=== PATIENT | female | born 1965 | race Caucasian/White ===

== ENCOUNTER 2016-11-19 12:08 | Emergency (ER) | payer SELFPAY ==
[2015-07-14 14:08] VITALS: BMI 25.5
[~2016-11-19 12:08] MED LIST: BACLOFEN10 MG PO; CIPRO500 MG PO; DIOVAN HCT 320/1 TA2 PO; GABAPENTIN100 MG PO; MECLIZINE HCL12.5 MG PO; MELATONIN 3 MG1 TAB PO; NICODERM C1 PATCH .3 TRANSDERM; PRILOSEC20 MG PO; SYNTHROID50 MCG PO; VALTREX500 MG PO
== END 2016-11-19 18:30 | disposition home or self-care (01) ==
LOC: D.ER 12:08
DX: S00.93XA Contusion of unspecified part of head, initial encounter (principal); W00.0XXA Fall on same level due to ice and snow, initial encounter; Y93.89 Activity, other specified; Y92.019 Unspecified place in single-family (private) house as the place of occurrence of the external cause; S01.01XA Laceration without foreign body of scalp, initial encounter; S16.1XXA Strain of muscle, fascia and tendon at neck level, initial encounter; I10 Essential (primary) hypertension; I95.9 Hypotension, unspecified; E07.9 Disorder of thyroid, unspecified

== ENCOUNTER 2016-11-29 12:31 | Emergency (ER) | payer MEDICAID ==
[2015-07-14 14:08] VITALS: BMI 25.5
== END 2016-11-29 13:25 | disposition left against medical advice (07) ==
LOC: D.ER 12:31
DX: S01.01XD Laceration without foreign body of scalp, subsequent encounter (principal); X58.XXXD Exposure to other specified factors, subsequent encounter; Y92.89 Other specified places as the place of occurrence of the external cause; I10 Essential (primary) hypertension; I95.9 Hypotension, unspecified; E07.89 Other specified disorders of thyroid

== ENCOUNTER 2017-01-06 10:28 | Emergency (ER) | payer MEDICAID ==
[2015-07-14 14:08] VITALS: BMI 25.5
[2017-01-06 11:24] LABS: BASOPHILS 0.1 % (0.0-2.0); EOSINOPHILS 0.1 % (0-7); HEMATOCRIT 32.6 % (36.0-48.0); HEMOGLOBIN 10.7 g/dL (12-16); IMMATURE GRANULOCYTES 0.5 % (0-5); LYMPHOCYTES 6.9 % (15-50); MCH 32.7 pg (26.0-34.0); MCHC 32.8 g/dL (31.0-37.0); MCV 99.7 fL (80.0-100.0); MEAN PLATELET VOLUME 9.2 fL (7.4-10.4); MONOCYTES 12.7 % (2-11); NEUTROPHILS 79.7 % (40-80); RBC 3.27 10x6/uL (4.00-5.40); RDW 16.3 % (11.5-14.5); WBC 8.7 10x3/uL (4.8-10.8)
[2017-01-06 11:27] LABS: PLATELET COUNT 155 10x3/uL (130-400)
[2017-01-06 11:35] LABS: UDS - AMPHET POSITIVE QUAL (NEGATIVE); UDS - BARB NEGATIVE QUAL (NEGATIVE); UDS - BENZO NEGATIVE QUAL (NEGATIVE); UDS - COCAINE NEGATIVE QUAL (NEGATIVE); UDS - METH NEGATIVE QUAL (NEGATIVE); UDS - OPIATE NEGATIVE QUAL (NEGATIVE); UDS - PCP NEGATIVE QUAL (NEGATIVE); UDS - THC NEGATIVE QUAL (NEGATIVE)
[2017-01-06 11:38] LABS: ALBUMIN 3.4 g/dL (3.4-5.0); ANION GAP 22.4 mmol/L (8-16); BILIRUBIN - TOTAL 0.7 mg/dL (0.2-1.3); C-REACTIVE PROTEIN 6.2 mg/dL (0.0-0.9); CALCIUM 9.1 mg/dL (8.5-10.1); CREATININE - SERUM 1.3 mg/dL (0.6-1.3); POTASSIUM - SERUM 3.4 mmol/L (3.5-5.1); PROTEIN - SERUM 7.8 g/dL (6.4-8.2)
[2017-01-06 11:38] LABS: APPEARANCE CLEAR (CLEAR); BILIRUBIN NEGATIVE (NEGATIVE); COLOR YELLOW (YELLOW); GLUCOSE NEGATIVE (NEGATIVE); KETONE LARGE mg/dL (NEGATIVE); LEUKOCYTE ESTERASE NEGATIVE (NEGATIVE); NITRITE NEGATIVE (NEGATIVE); PROTEIN TRACE mg/dL (NEGATIVE); UROBILINOGEN NORMAL (NORMAL)
[2017-01-06 11:43] LABS: BACTERIA FEW /hpf (NONE SEEN); EPITHELIAL CELLS 0-5 /hpf (0-5); GRANULAR CAST OCC /lpf (NONE SEEN); HYALINE CAST 0-5 /lpf (NONE SEEN); RED CELLS - URINE 0-5 /hpf (0-5); WHITE CELLS - URINE 0-5 /hpf (0-5)
== END 2017-01-06 15:43 | disposition short-term general hospital (02) ==
LOC: D.ER 10:28
PROVIDERS: Physician Assistant
DX: M25.511 Pain in right shoulder (principal); R44.1 Visual hallucinations; M79.641 Pain in right hand; F10.10 Alcohol abuse, uncomplicated; I10 Essential (primary) hypertension; E07.9 Disorder of thyroid, unspecified; F17.200 Nicotine dependence, unspecified, uncomplicated

== ENCOUNTER 2017-08-04 00:30 | Emergency (ER) | payer MEDICAID ==
[2015-07-14 14:08] VITALS: BMI 25.5
== END 2017-08-04 07:55 | disposition home or self-care (01) ==
LOC: D.ER 00:30
DX: F10.129 Alcohol abuse with intoxication, unspecified (principal); F10.10 Alcohol abuse, uncomplicated; I10 Essential (primary) hypertension; F17.200 Nicotine dependence, unspecified, uncomplicated; Z91.81 History of falling

== ENCOUNTER 2017-09-27 02:00 | Inpatient (IN) | payer MEDICAID ==
[2017-09-27] VITALS (10 sets, daily range): BP systolic 91–147; BP diastolic 49–99; Ht 162.6 cm; Wt 73.5 kg
[~2017-09-27] VITALS: Ht 162.6 cm; Wt 73.5 kg
[2017-09-27 03:08] LABS: APPEARANCE HAZY (CLEAR); BILIRUBIN NEGATIVE (NEGATIVE); COLOR DK YELLOW (YELLOW); GLUCOSE NEGATIVE (NEGATIVE); KETONE NEGATIVE (NEGATIVE); NITRITE NEGATIVE (NEGATIVE); PROTEIN 1+ mg/dL (NEGATIVE); SPECIFIC GRAVITY 1.005 (1.005-1.020); UROBILINOGEN NORMAL (NORMAL)
[2017-09-27 03:10] LABS: BACTERIA MODERATE /hpf (NONE SEEN); EPITHELIAL CELLS 0-5 /hpf (0-5); RED CELLS - URINE 0-5 /hpf (0-5); UDS - AMPHET NEGATIVE QUAL (NEGATIVE); UDS - BARB NEGATIVE QUAL (NEGATIVE); UDS - BENZO NEGATIVE QUAL (NEGATIVE); UDS - COCAINE NEGATIVE QUAL (NEGATIVE); UDS - OPIATE NEGATIVE QUAL (NEGATIVE); UDS - PCP NEGATIVE QUAL (NEGATIVE); UDS - THC POSITIVE QUAL (NEGATIVE)
[2017-09-27 03:11] LABS: HYALINE CAST 0-5 /lpf (NONE SEEN); MUCUS <1+ /lpf (NONE SEEN)
[2017-09-27 03:35] LABS: BASOPHILS 0.2 % (0-2); EOSINOPHILS 2.7 % (0-7); HEMATOCRIT 37.8 % (36.0-48.0); HEMOGLOBIN 12.1 g/dL (12-16); IMMATURE GRANULOCYTES 0.3 % (0-5); LYMPHOCYTES 13.6 % (15-50); MCH 30.9 pg (26.0-34.0); MCV 96.7 fL (80.0-100.0); MEAN PLATELET VOLUME 10.9 fL (7.4-10.4); MONOCYTES 6.9 % (2-11); NEUTROPHILS 76.3 % (40-80); PLATELET COUNT 178 10x3/uL (130-400); RBC 3.91 10x6/uL (4.00-5.40); RDW 14.8 % (11.5-14.5); WBC 6.6 10x3/uL (4.8-10.8)
[2017-09-27 03:50] LABS: ANION GAP 5.5 mmol/L (8-16); BILIRUBIN - TOTAL 0.3 mg/dL (0.2-1.3); CALCIUM 8.7 mg/dL (8.5-10.1); CARBON DIOXIDE 27.3 mmol/L (21.0-32.0); CREATININE - SERUM 1.9 mg/dL (0.6-1.3); POTASSIUM - SERUM 3.8 mmol/L (3.5-5.1); PROTEIN - SERUM 6.3 g/dL (6.4-8.2)
--- NOTE | 2017-09-27 06:18 | NUR ---
REPORT RECEIVED FROM REX IN ER @ APPROXIMATELY 05:00. AWAITING PTS ARRIVAL.
--- NOTE | 2017-09-27 07:15 | NUR ---
RESPIRATORY THERAPIST, CAME TO NOTIFY THIS NURSE THAT PT WAS OUT OF BED, BY WINDOW WITH HER IV ALL STRETCHED OUT. WENT TO PT'S ROOM. PT STANDING WITH HANDS ON WINDOW, TALKED TO PT BUT DID NOT GET ANY RESPONSE. WENT CLOSER TO PT AND HELPED HER BACK TO BED, EXPLAINED TO PT NOT TO GET OUT OF BED WITHOUT ASSISTANCE, TO USE CALL LIGHT WHEN SHE NEEDS TO GET UP TO THE BATHROOM. PT STATED "OK". DEMETRIA CASILLAS PLACED AMERICA MAT UNDER PT AND TURNED ON. BED LOW AND WHEELS LOCKED, BEDSIDE RAILS X2, CALL LIGHT IN REACH, NAD NOTED, WILL CONTINUE PLAN OF CARE.
--- NOTE | 2017-09-27 10:46 | NUR ---
Patient Name: MICHELA HERRERA Admission Status: ER Accout number: [id number] Admission Date: 09-27-2017 : 1965 Admission Diagnosis: Attending: PEDRO FERREIRA Current LOS: 1 Anticipated DC Date: 09-28-2017 Planned Disposition: Other Type of Facility Primary Insurance: [place] PRIVATE OPTIONS [place] PLANNED EXTERNAL PROVIDER: ALCOHOL ADDICTION TREATMENT FACILITY Discharge Planning Comments: * Is the patient Alert and Oriented? Yes 0 * How many steps to enter\\exit or inside your home? NONE 0 * PCP DR. FERREIRA 0 * Pharmacy [facility] 0 * Preadmission Environment Home with Family 0 * ADLs Independent 0 * Equipment None 0 * Other Equipment NO MEDICAL EQUIPMENT PROVIDER PREFERENCE 0 * List name and contact numbers for known caregivers / representatives who currently or will assist patient after discharge: CHENTE HERRERA, SON, EASTON STRINGER, MOTHER, 0 * Community resources currently utilized None 0 * Please name any agencies selected above. NONE 0 * Additional services required to return to the preadmission environment? No 0 * Can the patient safely return to the preadmission environment? Yes 0 * Has this patient been hospitalized within the prior 30 days at any hospital? No 0 CM RECEIVED ORDERS FOR DRUG OR ALCOHOL USE SCREENING WELL PLACEMENT / ASSISTANCE. CM MET WITH PT IN ROOM TO DISCUSS DISCHARGE PLANNING AND NEEDS. PT WOULD ANSWER YES AND NO QUESTIONS AND FELL ASLEEP CONSTANTLY DURING ATTEMPT AT ASSESSMENT. CM WAS ABLE TO DETERMINE THAT PT'S SON LIVES WITH HER, THAT IS WHERE PT PLANS TO GO AT DISCHARGE AND WHEN ASKED ABOUT ALCOHOL ADDICTION TREATMENT OR PLACEMENT, PT STATES "[facility] CM CALLED PT'S MOTHER, LISTED EMERGENCY CONTACT, EASTON STRINGER, ; EASTON REPORTS THAT SHE LIVES IN [place], PT LIVES IN [place] AND PT'S SON, CHENTE, HAS MOVED IN WITH PT TO TRY TO HELP PT. PT HAS BEEN TO REHAB FOR ALCOHOL AT LEAST 7 TIMES AND WALKS AWAY EVERYTIME. EASTON WILL HAVE PT'S SON CALL CM. CM RECEIVED CALL FROM CHENTE JONESFILIPE, OR PT'S PHONE, . CHENTE REPORTS HE MOVED IN WITH PT TWO YEARS AGO TO TRY TO HELP HER. PT DOES NOT WORK, SO CHENTE IS PAYING FOR PT'S FOOD, BILLS AND PROVIDES TRANSPORATION. CHENTE REPORTS THAT PT WILL DRINK ANTHING THAT MAY CONTAIN ALCOHOL; PT HAS A VERY LONG HISTORY OF ALCOHOLISM, WILL AGREE TO GO TO TREATMENT AND THEN JUST SIGN HERSELF OUT. CHENTE REPORTS PT HAS BEEN TO TREATEMENT 8X, HAS HAD 2 DWI'S, BEEN ARRESTED FOR DISORDERLY CONDUCT AND PUBLIC INTOXICATION. PT HAS BEEN TO A [facility], BUT AGAIN WILL NOT STAY FOR HELP. LAST WEEK, CHENTE REPORTS HIS MOTHER STOLE HIS CAR TO GO GET ALCOHOL AND CAME HOME DRUNK. PT DID GO TO [facility] AND WAS DIAGNOSED BI POLAR. CHENTE ASKED ABOUT INVOLUNTARY COMMITTEMENT FOR ALCOHOL TREATMENT. FAMILY IS FEARFUL THAT PT WILL NOT STOP DRINKING AND WILL KILL HERSELF DRINKING ALCOHOL. BARBARA DIRECTED CHENTE TO THE [facility] PROSECUTOR'S OFFICE FOR VICTIM ASSISTANCE AT THE [facility]. BARBARA ALSO EXPLAINED TO CHENTE THAT FOR SOMEONE ELSE TO BE ABLE TO MAKE DECISIONS FOR PT, THAT SHE WOULD HAVE TO RULED IMCOMPETENT BY A COURT OF COMPETENT JURISICTION, DIRECTED CHENTE TO SPEAK TO AN CHECKER REGARDING THIS. CM WILL ATTEMPT TO ASSESS PT LATER TODAY WHEN PT MAY BE MORE ABLE TO PARTICIPATE. Gmat Tutor: Woo Ulrich
--- NOTE | 2017-09-27 10:56 | NUR ---
CALLED DR. MURGUIA, ASKED HIM WHAT SIZE TRIALYSIS HE NEEDS. DR. MURGUIA'S NURSE STATED THAT HE WILL NEED A 12-13CM IF THAT SIZE IS NOT AVAILABLE, THEN HE WILL USE THE SMALLEST AVAILABLE. WILL CALL MATERIAL.
--- NOTE | 2017-09-27 12:20 | NUR ---
PT HAVING INCONT EPISODES. BARRELHEAD INSPECTOR AT BEDSIDE, CLEANING PT UP. PT KEEPS GETTING OUT OF BED, STARTED KICKING BARRELHEAD INSPECTOR WHEN SHE WAS TRYING TO GET PT BACK TO BED. PT STILL VERY CONFUSED, NO FAMILY AT BEDSIDE. AMERICA MAT IN PLACE, NAD NOTED, CALL LIGHT IN REACH, WILL CONTINUE PLAN OF CARE.
--- NOTE | 2017-09-27 13:41 | NUR ---
PT'S BROTHER AT BEDSIDE. ASKED PT'S BROTHER FOR HIS NUMBER AND PT'S SON PHONE NUMBER. ERNST TAMEZMYRIAMCristiana (BROTHER) [phone], CHENTE(SON) [phone]. PT IN BED WITH EYES CLASED, AROUSES EASILY TO VOICE. NAD NOTED, CALL LIGHT IN REACH. AMERICA MAT IN PLACE
--- NOTE | 2017-09-27 16:00 | NUR ---
PT KEEPS TRYING TO GET OUT OF BED, VERY CONFUSED, AND STARTING TO GET COMBATIVE. TRYING TO KICK AND SLAP. FAMILY AND CONE CHOCOLATE DIPPER ARE NOT ABLE TO KEEP PT IN BED. PT PULLING AT HEART MONITOR AND IV. DISCONNECTED PT FROM IV FLUIDS. FAMILY WANTS PT TO GET SOMETHING FOR PAIN. INFORMED FAMILY THAT PT CAN NOT GET ANYTHING FOR PAIN AT THIS TIME, BECAUSE SHE CAME IN WITH AMS AND PT IS STILL CONFUSED. 1610- TALKED TO DR. FERREIRA ABOUT PT BEING COMBATIVE AND NOT WANTING TO STAY IN BED. DR. FERREIRA STATED THAT IF AN ICU BED WAS AVAILABLE TO TRANSFER PT TO ICU FOR CLOSER MONITORING. 1620- CALLED QUALITY ASSURANCE SUPERVISOR TRIM ANITA AND INFORMED HER ABOUT A NEED FOR ICU BED. ASHELY WILL CALL BACK IF ICU BED IS AVAILABLE. 1630- PT SCREAMING AT THE TOP OF HER LUNGS AND STILL TRYING TO GET OUT OF BED, PT HITTING SON AND BROTHER. TRIED TO GET PT TO CALM DOWN, NOTHING WORKING, PT TRYING TO HIT THIS NURSE AND CONE CHOCOLATE DIPPER. FAMILY ASKING FOR SOMETHING TO BE DONE, BROTHER STATING " WHAT WOULD YA'LL BE DOING IF WE WERE NOT HERE". EXPLAINED TO FAMILY THAT I AM WORKING ON GETTING AN ICU BED, SO PT CAN BE RESTRAINED. 2 CNAS, SON AND BROTHER TRYING TO KEEP PT IN BED, PT STILL FIGHTING TO GET OUT. STILL WAITING FOR ICU BED.
--- NOTE | 2017-09-27 16:03 | NUR ---
PT'S MEDICATIONS GIVEN TO PT'S SON TO TAKE HOME.
--- NOTE | 2017-09-27 17:07 | NUR ---
CALLED ICU TO GIVE REPORT, SPOKE WITH TIAN, WHO STATED THAT NURSE WHO WILL BE TAKING CARE OF PT WILL CALL BACK TO GET REPORT.
--- NOTE | 2017-09-27 18:09 | NUR ---
REPORT GIVEN TO NATHAN MICHELE IN ICU.
--- NOTE | 2017-09-27 18:20 | NUR ---
1715 RECEIVED PER BED FROM FLOOR. EYES WIDE OPEN STARRING OUT INTO SPACE. NOT ANSWERING QUESTIONS SKIN SWEATY, WARM. BILATERAL LUNG SOUNDS CLEAR AND EQUAL ABD SOFT WITH BOWEL SOUNDS. SALINE LOCK LEFT FOREARM. FLUSHES WITHOUT DIFFICULTY NO SWELLING OR REDNESS AT SITE. WRIST RESTRAINTED FOR SAFETY. BROTHER AND SON HERE. DISCUSS CENTRAL LINE FOR DIALYSIS TRIALYSIS CATHETER AND DIALYSIS TO DECREASE HER SERUM LITHIUM LEVELS. VERBAL UNDERSTANDING. TALKED WITH BREVING ABOUT TRIALYSIS CATHETER.CONSENT SIGNED. PATIENT BECAME UNCONTROLLABLE BUCKING UP AND DOWN SWINGING HEAD UP AND DOWN BACK AND FORTH UNCONTROLLABLY NURSES AND PHYSICIAN COULD NOT HOLD HER DOWN. ANESTHESIA CALLED TO ASSIST WITH CONTROLLING PATIENT DURING PROCEDURE. DR. JERRY LIM TRIALYSIS INSERTED IN RIGHT IJ WITH MINIMAL BLEEDING. PATIENT TOLERATED FAIR. CHEST DONE FOR PLACEMENT. DIALYSIS NURSE IN THE ROOM.
--- NOTE | 2017-09-27 18:57 | NUR ---
TALK TO RADIOLOGY LINE IN SVC, CLEARED FOR USE. DIALYSIS NURSE NOTIFIED
--- NOTE | 2017-09-27 19:00 | NUR ---
REPORT RECEIVED AND ASSESSMENT COMPLETED. PT IS CURRENTLY UNDERGOING DIALYSIS. PT IS A LITHIUM OVERDOSE. AT THIS TIME PT IS SCREAMING LOUDLY, AND KICKING IN THE AIR. UNABLE TO DETERMINE PAIN LEVEL WITH DISCUSSION, THOUGH PT FACE APPEARS MORE FEARFUL THAIN IN PAIN, AND SHE CALMS BREIFLY WHEN REORIENTED. STILL THERE IS CONCERN FOR HER TRIALYSIS CATHETER. PT HAS PAST HX OF MENTAL HEALTH DISORDERS, AND ALCOHOLISM. WILL MONITOR CLOSELY THROUGHOUT SHIFT.
--- NOTE | 2017-09-27 21:00 | NUR ---
PT CONTINUES TO THRASH IN BED UNABLE TO KEEP PATIENT CALM AND SAFE THROUGH DIALYSIS AND CONCERNED FOR HER TRIALYSIS MD TIMMY CONTACTED. NEW ORDERS RECEIVED.
--- NOTE | 2017-09-27 23:00 | NUR ---
REASSESSMENT COMPLETED. SEE FLOWSHEET FOR FULL DETAILS. PT STILL UNDERGOING DIALYSIS. WITH PRN MEDICATION, PT HAS STOPPED THRASHING IN BED; HOWEVER, SHE IS STILL SCREAMING. LITHIUM LEVEL SUBSTANTIALLY LOWER THAN BEGINNING OF SHIFT. CURRENTLY 1.33. WILL CONTINUE TO MONITOR
[2017-09-28] VITALS (24 sets, daily range): BP systolic 98–146; BP diastolic 52–85
--- NOTE | 2017-09-28 01:00 | NUR ---
DIALYSIS CONCLUDED FOR THE EVENING. NO FLUID REMOVE FROM PATIENT DURING TREATMENT.
--- NOTE | 2017-09-28 03:00 | NUR ---
REASSESSMENT COMPLETED. SEE FLOWSHEET FOR FULL DETAILS. NO OTHER CHANGES IN STATUS AT THIS TIME. VSS. WILL MONITOR
[2017-09-28 04:28] LABS: BASOPHILS 0 % (0-2); EOSINOPHILS 0.7 % (0-7); HEMATOCRIT 37.7 % (36.0-48.0); HEMOGLOBIN 12.3 g/dL (12-16); IMMATURE GRANULOCYTES 0.1 % (0-5); LYMPHOCYTES 4.8 % (15-50); MCH 30.4 pg (26.0-34.0); MCHC 32.6 g/dL (31.0-37.0); MEAN PLATELET VOLUME 10.8 fL (7.4-10.4); MONOCYTES 9.2 % (2-11); NEUTROPHILS 85.2 % (40-80); RBC 4.04 10x6/uL (4.00-5.40); RDW 14.4 % (11.5-14.5)
[2017-09-28 04:31] LABS: MCV 93.3 fL (80.0-100.0); PLATELET COUNT 140 10x3/uL (130-400); WBC 8.3 10x3/uL (4.8-10.8)
[2017-09-28 04:38] LABS: ANION GAP 11.8 mmol/L (8-16); CALCIUM 8.1 mg/dL (8.5-10.1); CARBON DIOXIDE 27.9 mmol/L (21.0-32.0)
[2017-09-28 04:50] LABS: POTASSIUM - SERUM 2.7 mmol/L (3.5-5.1)
--- NOTE | 2017-09-28 06:05 | NUR ---
LAB CALLED. POTASSIUM 2.7. CONTACTED. NEW ORDERS RECEIVED.
--- NOTE | 2017-09-28 07:00 | NUR ---
REPORT RECEIVED FROM OFF GOING NURSE. DURING REPORT, PT SCREAMING AND MOANING. WAS NOTIFIED THAT SHE DID THIS ALL NIGHT. SEE FLOW SHEET FOR ASSESSMENT. PT WILL HAVE EYES CLOSED AND SUDDENLEY OPEN EYES WIDE AND SCREAM. PT WILL NOT RESPOND WHENEVER SPOKEN TOO. PT WILL NOT FOLLOW COMMANDS. PT IN RESTRAINTS AND WILL THRASH AT RESTRAINTS. SKIN INSPECTED. NO REDDNESS NOTED. VSS. BREATHING NORMAL AND UNLABORED. WILL CONT POC.
[2017-09-28 08:19] LABS: HEPATITIS C ANTIBODY <0.1 (0.0-0.9)
--- NOTE | 2017-09-28 08:30 | NUR ---
PT THRASHING AT RESTAINTS AND SCREAMING. STILL UNABLE TO COMMUNICATE WITH PT DUE TO HER PSYCOSIS. ATTIVAN GIVEN. VSS.
--- NOTE | 2017-09-28 09:00 | NUR ---
PT INC. PERICARE PROVIDED AND BED LINENS CHANGED. MENTAL STATUS UNCHANGED. REMAINS TO SCREAM. VSS. BREATHING NORMAL AND UNLABORED.
[2017-09-28 10:32] LABS: ANION GAP 11.3 mmol/L (8-16); CALCIUM 7.9 mg/dL (8.5-10.1); CARBON DIOXIDE 27.3 mmol/L (21.0-32.0); CREATININE - SERUM 1.1 mg/dL (0.6-1.3)
[2017-09-28 10:33] LABS: POTASSIUM - SERUM 3.6 mmol/L (3.5-5.1)
--- NOTE | 2017-09-28 11:00 | NUR ---
PT RESTIN WITH EYES CLOSED WITH EVEN UNLABORD RESPIRATION. EVERY NOW AND THEN WILL SCREAM FOR ABOUT A SECOND, THEN CLOSE EYES AND REST. VSS. CALL LIGHT IN REACH. WILL CONT POC
--- NOTE | 2017-09-28 11:30 | NUR ---
BANANA BAG HUNG PER ORDERS. PT REMAINS RESTING WITH EYES CLOSED. VSS. CALL LIGHT IN REACH. WILL CONT POC
--- NOTE | 2017-09-28 12:00 | NUR ---
PT BLADDER AND BOWEL INC. BED SATURATED WITH URINE AND SMALL AMOUNT OF STOOL. PERIAREA CLEANSED AND NEW LINES TO BED. PT UNABLE TO FOLLOW DIRECTIONS SUCH TURNING SIDE TO SIDE. CALL LIGHT IN REACH. WILL CONT POC
--- NOTE | 2017-09-28 13:00 | NUR ---
PT RESTING WITH EYES CLOSED WITH EVEN UNLABORED RESPIRATION. BREIF DRY. CALL LIGHT IN REACH. VSS. WILL CONT POC.
--- NOTE | 2017-09-28 15:00 | NUR ---
PT REMAINS IN BED. SCREAMING AND YELLING. NOT THRASHING AT RESTAINTS. WHENEVER SCREAMING, SHE WILL OPEN HER EYES WIDE AND HAVE A FIXED POINT STARE. UNABLE TO ASSESS IF SHE IS SEEING ANYTHING OF NOT DUE HER NOT COMMUNICATING.
--- NOTE | 2017-09-28 16:00 | NUR ---
FAMILY AT BEDSIDE. REMAINS TO YELL AND SCREAM AND NOW THRASHING. ATIVAN GIVEN FOR AGGITATION. PT NOT THRASHING BUT REMAINS TO SCREAM INT. FAMILY WONDERING IF PT IS TO RECIEVE DYALYSIS. DR JOLENE MOSS AND HE STATED NO. FAMILY UPDATED ON PT'S CONDITION.CALL LIGHT IN REACH. WILL CONT POC
--- NOTE | 2017-09-28 17:00 | NUR ---
NO CHANGE IN PT'S CONDITION. VSS. REMAINS TO SCREAM AND YELL INT. WILL NOT COMMUNICATE. CALL LIGHT IN REACH. WILL CONT POC
--- NOTE | 2017-09-28 19:00 | NUR ---
REPORT REC'D. ASSUMED PATIENT CARE. ASSESSMENT COMPLETED PER FLOW SHEETS. PT LAYING IN BED PULLING AT RESTRAINTS. UNABLE TO REORIENT OR CALM, CONSTANTLY SCREAMS OR YELLS WITH VOICES. SB ON CM WITH HR AT 55, UNLABORED. O2SAT 97% ON 2L VIA NC. REPOSITIONED FOR COMFORT. CONT TO MONITOR.
--- NOTE | 2017-09-28 21:00 | NUR ---
PT'S MOTHER CALLED. UPDATED AND QUESTIONS ANSWERED.
--- NOTE | 2017-09-28 23:00 | NUR ---
REASSESSMENT COMPLETED. SEE FLOW SHEETS FOR ALL FINDINGS. PT CONT YELLING AND SCREAMING. NO ACUTE SIGNS OF DISTRESS NOTES AT THIS TIME. SB ON CM. CONT TO MONITOR.
[2017-09-29] VITALS (24 sets, daily range): BP systolic 106–157; BP diastolic 54–99
--- NOTE | 2017-09-29 01:40 | NUR ---
PT SCREAMING AND YELLING CONSTANTLY PULLING AGAINS RESTRAINTS. UNABLE TO CALM OR REORIENT. ATIVAN IVP GIVEN PER ORDER. CPOC.
--- NOTE | 2017-09-29 03:00 | NUR ---
PT INCONTINENT OF URINE. BEDBATH GIVEN. LINEN AND GOWN CHANGES. SKIN CARE PROVIDED. REPOSITIONED FOR COMFORT. REASSESSMENT COMPLETED. SEE FLOW SHEETS FOR ALL FINDINGS. CALL LIGHT IN REACH. CPOC.
[2017-09-29 05:03] LABS: BASOPHILS 0.1 % (0-2); EOSINOPHILS 0.2 % (0-7); HEMATOCRIT 33.9 % (36.0-48.0); IMMATURE GRANULOCYTES 0.2 % (0-5); LYMPHOCYTES 3.7 % (15-50); MCH 30.2 pg (26.0-34.0); MCHC 32.4 g/dL (31.0-37.0); MCV 93.1 fL (80.0-100.0); MEAN PLATELET VOLUME 10.6 fL (7.4-10.4); MONOCYTES 5.5 % (2-11); NEUTROPHILS 90.3 % (40-80); PLATELET COUNT 118 10x3/uL (130-400); RBC 3.64 10x6/uL (4.00-5.40); RDW 14.3 % (11.5-14.5)
[2017-09-29 05:10] LABS: WBC 12.9 10x3/uL (4.8-10.8)
[2017-09-29 05:24] LABS: ANION GAP 15.1 mmol/L (8-16); CALCIUM 8.2 mg/dL (8.5-10.1); CARBON DIOXIDE 21.5 mmol/L (21.0-32.0); POTASSIUM - SERUM 3.6 mmol/L (3.5-5.1)
--- NOTE | 2017-09-29 10:27 | NUR ---
Nutrition follow-up: Diet: Regular as tolerated PO intake 0 due to altered mental status Labs reviewed Wt: 162# Will need nutrition support if po intake does not improve RDN following.
--- NOTE | 2017-09-29 11:00 | NUR ---
NO CHANGE NOTED.
--- NOTE | 2017-09-29 15:00 | NUR ---
NO CHANGE NOTED
--- NOTE | 2017-09-29 19:00 | NUR ---
0: Pt rec'd thrashing in bed and yelling out. Unable to calm patient at this time. Pt remains confused and does not follow commands. Pt moves x4 extrem vs. gravity without difficulty. Pupils VIV+ bilat. Pt will track nurse at times with EOM, but again does not follow commands. Pt attempting to get OOB and remains in bilateral soft wrist restraints. Pt repositioned at this time and all measures taken to prevent accidental removal of lines etc.. Bed alarm remains on and audible.
--- NOTE | 2017-09-29 21:00 | NUR ---
2100: Pt with periods of calm vs periods of yelling out and thrashing. Repeated attempts to calm pt unsuccessful.
--- NOTE | 2017-09-29 23:45 | NUR ---
2345: Pt remains with occasional periods of thrashing and yelling. Unable to reorient patient at this time. Pt pulling at medically neccassary equipment and refusing/unable to maintain safety. Pt remains in x4 extrem soft restraints to prevent accidental removal of lines and equipment including Trialysis catheter, NIBP, SPO2, and Telemetry.
[2017-09-30] VITALS (23 sets, daily range): BP systolic 111–174; BP diastolic 59–97
--- NOTE | 2017-09-30 01:00 | NUR ---
0100: Pt saturated bed with urine at this time. Bath and linen change done. Pt reposition with extrem off bed with pillow support. Pt remains with occasional thrashing and shouting outbursts followed by calm and resting periods. Pt remains SB/SR on CM with SBP 140-150 with SPO2 97-98% with 022LNC.
[2017-09-30 04:19] LABS: BASOPHILS 0.1 % (0-2); EOSINOPHILS 0.8 % (0-7); HEMATOCRIT 34.3 % (36.0-48.0); HEMOGLOBIN 11.6 g/dL (12-16); IMMATURE GRANULOCYTES 0.3 % (0-5); LYMPHOCYTES 4.6 % (15-50); MCH 31.2 pg (26.0-34.0); MCHC 33.8 g/dL (31.0-37.0); MCV 92.2 fL (80.0-100.0); MEAN PLATELET VOLUME 10.9 fL (7.4-10.4); MONOCYTES 5.8 % (2-11); NEUTROPHILS 88.4 % (40-80); PLATELET COUNT 112 10x3/uL (130-400); RBC 3.72 10x6/uL (4.00-5.40); RDW 14.1 % (11.5-14.5)
[2017-09-30 04:47] LABS: CALC OSMOLALITY 275 mosm/kg (275-300); CALCIUM 9.5 mg/dL (8.5-10.1); CARBON DIOXIDE 18.8 mmol/L (21.0-32.0); CHLORIDE - SERUM 107 mmol/L (98-107); CREATININE - SERUM 0.8 mg/dL (0.6-1.3); GLUCOSE 125 mg/dL (74-106); POTASSIUM - SERUM 3.8 mmol/L (3.5-5.1); SODIUM 139 mmol/L (136-145); eGFR NON AFRICAN AMERICAN 79 mL/min (90-120)
[2017-09-30 04:53] LABS: UREA NITROGEN 5 mg/dL (7-18)
--- NOTE | 2017-09-30 05:00 | NUR ---
0500: Pt remains SR 60's on CM with SBP 150's. No change in pt RESP/NV/CV status or assessment. Neuro assessment unchanged and pt remains confused with periods of yelling and thrashing in bed. All interventions to reorient pt are unsuccessful.
--- NOTE | 2017-09-30 10:32 | CN ---
PATIENT NAME:MICHELA HERRERA MEDICAL RECORD: [id number] : 61 LOCATION:[facility].2303 ADMIT DATE: 09/27/17 ACCOUNT: [id number] CONSULTING PHYSICIAN: LYNDSEY MAYA MD REFERRING PHYSICIAN: PEDRO FERREIRA MD DATE OF CONSULTATION: 09/29/2017 PSYCHIATRIC CONSULTATION IDENTIFYING DATA: The patient is 52 years old and she is admitted to the hospital on a voluntary basis. CHIEF COMPLAINT: Confusion. HISTORY OF PRESENT ILLNESS: The patient is in the intensive care unit. Apparently, she is an alcoholic and she was also toxic on lithium. She had level substantially above 2 that we know of. It may have been higher for some time prior to coming into the hospital. She has gone through dialysis. She has a normal renal function with BUN and creatinine of 7 and 1 today. She is unresponsive to me. She is in 4-point restraints, but she is lying in the bed in a relaxed manner, looking up at the ceiling and mumbling incoherently. She does not respond to my questions or follow simple commands. Apparently, she has these episodes where she becomes extremely agitated and requires p.r.n. Ativan, which does not last very long. Really, there is not very much known about her longitudinal history and there is no other collateral source of information available at this moment. The patient apparently does have a history of alcoholism and bipolar disorder. There is no reason to document mental status exam since it could not be done and the description would be a repeat if what I have already mentioned. ASSESSMENT: 1. Delirium. 2. Bipolar disorder by history. 3. Alcoholism by history. 4. [place] toxicity. PLAN: At this time, from a behavioral or psychiatric standpoint, there is little that I have to offer. Obviously, once the patient improves or more accurately if she improves, she certainly needs appropriate followup for alcoholism and her mental illness. In my view, this is a delirium and she looks neurologic. I know we do not have the ability to have a neurologist see her here. I do not think that this is an alcohol withdrawal delirium based on a heart rate of 58 and a blood pressure that is elevated but only mildly and she is not diaphoretic. It is certainly possible that she has had a substantial brain injury from lithium toxicity, but again, this looks more like a delirium. The patient is still toxic on lithium with a blood level this morning of 1.9 mEq. I am going to guess that, by tomorrow morning, it will be down to about 1.2 mEq and next day down to about 0.6 mEq. Within a couple of days if she is not better, I would be much more concerned about long-term prognosis. She clearly is in need of supportive nursing care that she is receiving in the intensive care unit. I would recommend not only the p.r.n. use of Ativan but probably a scheduled benzodiazepine, especially since we do not know how much she drank at home. Perhaps a couple milligrams of Ativan a couple of times a day would be reasonable. I know she cannot or is unable to swallow pills at this time, so any benzo use would have to be intravenous. I think it would also CONSULT REPORT [id number] MICHELA HERRERA be appropriate to give her a low dose of an antipsychotic, say 10 mg to 20 mg of Geodon IM once or twice a day. Again, I think that the situation will become clear in the next few days, and if there is additional need for psychiatric intervention to address substance abuse treatment or her bipolar disorder, I would be happy to see her again. TRANSINT:[id number] Voice Confirmation ID: [id number] DOCUMENT ID: [id number] LYNDSEY MAYA MD at 1032 CC: [id number] DICTATION DATE: 09/29/17 1305 SHOE SALESPERSON: 09/29/17 1331 ADM IN [facility] [address] [place] [address]
--- NOTE | 2017-09-30 16:28 | NUR ---
FAMILY REQUEST DIAPER FOR PATIENT, EXPLAINED THE PROS AND CONS OF WEARING A DIAPER AND DIAPER PLACED. BATHED AND HAIR WASHED. FAMILY APPEARS TO BE HAVING DIFFICULTY WITH THE TIME INVOLVED WITH THIS PATIENTS RECOVERY, EXPLAINED THAT "TIME", IS NOT 4 HOURS OR 12 HOURS, RATHER DAYS.
--- NOTE | 2017-09-30 20:08 | NUR ---
1900 REPORT RECEIVED FROM ERI SHEPARD RN. PATIENT RESTING QUIETLY WITH EYES CLOSED. RESTRAINTS IN PLACE. ALL VITALS WNL. PM ASSESSMENT DOCUMENTED PER FLOWSHEET.
--- NOTE | 2017-09-30 22:18 | NUR ---
2215 16FRENCH BRANCH PLACED USING STERILE TECHNIQUE. TOTAL BED BATH GIVEN AND LINENS CHANGED.
--- NOTE | 2017-09-30 23:40 | NUR ---
2300 RE-ASSESSMENT DOCUMENTED PER FLOWSHEET. RESTING QUIETLY, ALL VITALS WNL. RESTRAINTS REMAIN IN PLACE.
[2017-10-01] VITALS (24 sets, daily range): BP systolic 105–164; BP diastolic 61–95
--- NOTE | 2017-10-01 03:05 | NUR ---
0300 REASSESSMENT DOCUMENTED PER FLOWSHEET. PATIENT RESTING QUIETLY WITH EYES CLOSED. ALL VITALS WNL.
[2017-10-01 06:25] LABS: BASOPHILS 0.1 % (0-2); HEMATOCRIT 37.6 % (36.0-48.0); HEMOGLOBIN 12.5 g/dL (12-16); IMMATURE GRANULOCYTES 0.3 % (0-5); LYMPHOCYTES 9.4 % (15-50); MCH 30.8 pg (26.0-34.0); MCHC 33.2 g/dL (31.0-37.0); MCV 92.6 fL (80.0-100.0); MONOCYTES 5.6 % (2-11); NEUTROPHILS 79.6 % (40-80); PLATELET COUNT 128 10x3/uL (130-400); RBC 4.06 10x6/uL (4.00-5.40); RDW 14.1 % (11.5-14.5)
[2017-10-01 06:28] LABS: WBC 7.2 10x3/uL (4.8-10.8)
[2017-10-01 06:38] LABS: CALC OSMOLALITY 283 mosm/kg (275-300); CALCIUM 9.3 mg/dL (8.5-10.1); CARBON DIOXIDE 20.8 mmol/L (21.0-32.0); CHLORIDE - SERUM 109 mmol/L (98-107); CREATININE - SERUM 0.6 mg/dL (0.6-1.3); GLUCOSE 112 mg/dL (74-106); SODIUM 143 mmol/L (136-145); UREA NITROGEN 6 mg/dL (7-18); eGFR NON AFRICAN AMERICAN > 90 mL/min (90-120)
[2017-10-01 06:39] LABS: POTASSIUM - SERUM 3.1 mmol/L (3.5-5.1)
--- NOTE | 2017-10-01 07:00 | NUR ---
PATIENT IS AWAKE AND ALERT, DOES SHOW SOME DIFFICULTY WITH FINE MOTOR MOVEMENT, HAS DIFFICULTY WITH SPOON AND OPENING CARTONS FOR BREAKFAST.
[2017-10-02] VITALS (16 sets, daily range): BP systolic 112–173; BP diastolic 38–100
[2017-10-02 05:59] LABS: BASOPHILS 0.1 % (0-2); EOSINOPHILS 6.4 % (0-7); HEMATOCRIT 37.8 % (36.0-48.0); HEMOGLOBIN 12.6 g/dL (12-16); IMMATURE GRANULOCYTES 0.3 % (0-5); LYMPHOCYTES 13.3 % (15-50); MCH 30.4 pg (26.0-34.0); MCHC 33.3 g/dL (31.0-37.0); MCV 91.3 fL (80.0-100.0); MEAN PLATELET VOLUME 10.8 fL (7.4-10.4); NEUTROPHILS 69.9 % (40-80); RBC 4.14 10x6/uL (4.00-5.40); RDW 14.2 % (11.5-14.5)
[2017-10-02 06:16] LABS: PLATELET COUNT 190 10x3/uL (130-400)
[2017-10-02 06:23] LABS: CALC OSMOLALITY 285 mosm/kg (275-300); CALCIUM 8.8 mg/dL (8.5-10.1); CARBON DIOXIDE 22.8 mmol/L (21.0-32.0); CHLORIDE - SERUM 111 mmol/L (98-107); CREATININE - SERUM 0.7 mg/dL (0.6-1.3); GLUCOSE 107 mg/dL (74-106); SODIUM 145 mmol/L (136-145); UREA NITROGEN 5 mg/dL (7-18); eGFR NON AFRICAN AMERICAN > 90 mL/min (90-120)
[2017-10-02 06:31] LABS: POTASSIUM - SERUM 3.8 mmol/L (3.5-5.1)
--- NOTE | 2017-10-02 07:00 | NUR ---
REPORT RECIEVED FROM OFF GOING NURSE. SEE ASESSMENT IN FLOW SHEET. PT ALERT AND ORIENTED TO PERSON AND PLACE ONLY. PT HAS VERY DISORGANZIED THOUGHT PROCESS THAT MAKES NO SENSE AND TIMES. VSS. PT DENIES PAIN AT THIS TIME. BREATHING NORMAL AND UNALBORED. PT WAS FOUNDING STADING AT THE SIDE OF THE BED. BED ALARM SOUNDING. PT BACK IN BED SAFE. CALL LIGHT IN REACH. WILL CONT POC
--- NOTE | 2017-10-02 08:00 | NUR ---
WHENEVER PT WAS EATING BREAKFAST, PT WAS OFFERING HER APPLE JUICE TO THE ICU MONITOR AND WAS TALKING TO IT IF IT WAS A PERSON. WHENEVER ASKED WHO SHE WAS TALKING TOO, SHE STATED "HER" AND POINTED AT THE MONITOR. NO ONE WAS IN THE ROOM AND THE CURTAIN WAS BLOCKING VIEW OUTSIDE OF HER ROOM. EXPLAINED THAT THERE WAS NO ONE THERE AND SHE STARTED LAUGHING.
--- NOTE | 2017-10-02 09:00 | NUR ---
FAMILY AT BEDSIDE. PT REMAINS CONFUSED AND REMAINS TO HAVE SRANGE THOUGHT PROCESS. SHE TOLD HER FAMILY THAT SHE WAS SEEING GOLD STREAMERS IN FRONT OF HER. NO GOLD INSITE. EXPLAINED THAT SHE WAS IN ICU. UNABLE TO REORIENT. CALL LIGHT IN REACH. WILL CONT POC
--- NOTE | 2017-10-02 09:41 | NUR ---
Nutrition follow-up: Diet advanced vegetarian with po intake ~100% of last 3 meals Labs reviewed Wt: 162# +BM Will provide food choices with selective menus and honor food preferences RDN following.
--- NOTE | 2017-10-02 10:30 | NUR ---
PT FC DC PER ORDRS. PT REMAINS TO HAVE BIZZARR THINKING PROCESS AND HALLUCINATIONS. VSS. PT BREATHING NORMAL AND UNLABOERD. CALL LIGHT IN REACH. WILL CONT POC
[2017-10-02 11:45] LABS: APPEARANCE SLT CLOUDY (CLEAR); BILIRUBIN NEGATIVE (NEGATIVE); COLOR YELLOW (YELLOW); GLUCOSE NEGATIVE (NEGATIVE); KETONE NEGATIVE (NEGATIVE); NITRITE NEGATIVE (NEGATIVE); PROTEIN NEGATIVE (NEGATIVE); SPECIFIC GRAVITY 1.005 (1.005-1.020); UROBILINOGEN NORMAL (NORMAL); WHITE CELLS - URINE 0-5 /hpf (0-5)
[2017-10-02 11:46] LABS: BACTERIA MODERATE /hpf (NONE SEEN); EPITHELIAL CELLS 0-5 /hpf (0-5); MUCUS <1+ /lpf (NONE SEEN)
--- NOTE | 2017-10-02 12:00 | NUR ---
NO CHANGE IN PT'S CONDITION.
--- NOTE | 2017-10-02 13:09 | NUR ---
ASSISTED TO [facility]. 250ML OF CLEAR URINE NOTED. BACK IN BACK WITH BED ALARM ON.
--- NOTE | 2017-10-02 14:00 | NUR ---
DR MAYA AT BED SIDE. EVALUATED PT.
--- NOTE | 2017-10-02 14:23 | NUR ---
Referral faxed to [facility].
[2017-10-02] MEDS ORDERED: KLONOPIN0.5 MG PO (14:51)
[2017-10-02] MEDS ORDERED: ZYPREXA5 MG PO (14:52)
[2017-10-02] MEDS ORDERED: LITHIUM CARBON150 MG PO (14:52)
--- NOTE | 2017-10-02 15:12 | NUR ---
Rec'd call from Ran[place]fo with [facility]. Patient has been accepted by Dr. Pelletier in [place]. Patient will transfer via ambulance to room 803. Nursing to call report to [phone]. Notified patients mother of status.
--- NOTE | 2017-10-02 15:40 | NUR ---
REPORT CALLED INTO [facility] IN [place]. REPORT CALLED IN TO JUNE TARANGO RN.
--- NOTE | 2017-10-02 16:05 | NUR ---
RIGHT IJ REMOVED. PRESSURE HELD AND PRESSURE DRESSING APPLIED TO SITE. CATHETER TIP INTACT. DRESSING C/D/I.
--- NOTE | 2017-10-02 18:48 | NUR ---
ALL BELONGS ACCOUNTED FOR. VSS. BREATHING NORMAL AND UNLABORED. LEFT THE HOSPITAL VIA AMBULACE TO [facility].
--- NOTE | 2017-10-02 19:59 | CN ---
PATIENT NAME:MICHELA HERRERA MEDICAL RECORD: [id number] : 61 LOCATION:[facility].2303 ADMIT DATE: 09/27/17 ACCOUNT: [id number] CONSULTING PHYSICIAN: LYNDSEY MAYA MD REFERRING PHYSICIAN: PEDRO FERREIRA MD DATE OF CONSULTATION: 10/02/2017 PSYCHIATRIC CONSULTATION FOLLOWUP SUBJECTIVE: The patient's case was discussed. Records were reviewed. OBJECTIVE: The patient is medically stable. Her lithium level is actually subtherapeutic now. She is oriented to person only. She has been talking to people not present. She took some apple juice from her breakfast tray and was trying to offer it to the monitor. Her vital signs do not indicate an alcohol withdrawal. She is inappropriate in her affect, clearly very psychotic. ASSESSMENT: 1. Bipolar disorder. 2. Alcoholism. PLAN: The patient is in need of inpatient psychiatric care. Her long-term prognosis is guarded. I think once medically stabilized, she should be transitioned to inpatient psychiatric care as soon as it is reasonably practical to do so. TRANSINT:[id number] Voice Confirmation ID: [id number] DOCUMENT ID: [id number] LYNDSEY MAYA MD at 1959 CC: [id number] DICTATION DATE: 10/02/17 1423 DIRECTOR OF MEDICAL REVIEW: 10/02/17 1513 DIS IN 10/02/17 [facility] [address] [place] [address]
--- NOTE | 2017-10-10 15:43 | OP ---
PATIENT NAME: MICHELA HERRERA MEDICAL RECORD: [id number] :61 LOCATION:.[facility] D.2303 ADMISSION DATE:09/27/17 SURGEON: PAVEL MURGUIA MD DATE OF OPERATION: 09/29/2017 PREOPERATIVE DIAGNOSES: 1. Altered mental status. 2. [place] overdose, in need of dialysis access. POSTOPERATIVE DIAGNOSES: 1. Altered mental status. 2. [place] overdose, in need of dialysis access. PROCEDURE: Insertion of right internal jugular Trialysis catheter (non-tunneled hemodialysis catheter). SURGEON: Pavel Murguia MD DIVISION SERVICE MANAGER: None. BLOOD LOSS: Minimal. ANESTHESIA: Local with sedation by the anesthesia staff. DESCRIPTION OF PROCEDURE: The patient was very combative. This necessitated an urgent consultation with Dr. Liang of the anesthesia department. He performed sedation for the patient. Otherwise, it would have been very difficult to place this Trialysis catheter as the patient was very combative. After sedation and then induced by anesthesia staff, the right neck was sterilely prepped and draped. Local anesthetic was used to infiltrate the skin and subcutaneous tissues at the base of the right neck. The right internal jugular vein was accessed in an antegrade fashion. A guidewire passed easily. I then dilated with vascular dilators. A short Trialysis catheter was then inserted to the hub. It was sutured in place times 3. All lumens flushed easily and aspirated dark, nonpulsatile blood. A stat portable chest x-ray is pending. The site was sterilely dressed. TRANSINT:[id number] Voice Confirmation ID: [id number] DOCUMENT ID: [id number] PAVEL MURGUIA MD at 1543 CC: [id number] DICTATION DATE: 09/29/17 1107 [employer] CIVIL ENGINEER: 09/29/17 1159 DIS IN 10/02/17 [facility] [address] [place] [address]
== END 2017-10-02 18:51 | disposition short-term general hospital (02) | DRG 917 ==
LOC: D.ER 02:00 → D.M2 04:24 → OBSVTIME 04:30 → D.ICU 10:20 → D.M2 10:20 → D.ICU 18:11
PROVIDERS: Emergency Medicine; Family Medicine Adult Medicine; Internal Medicine; ADMIT Emergency Medicine
PROC: 02HV33Z Insertion of Infusion Device into Superior Vena Cava, Percutaneous Approach (ICD-10-PCS; principal; 2017-09-27)
PROC: 5A1D70Z Performance of Urinary Filtration, Intermittent, Less than 6 Hours Per Day (ICD-10-PCS; 2017-09-27)
DX: T43.595A Adverse effect of other antipsychotics and neuroleptics, initial encounter (principal); G92 Toxic encephalopathy; F17.203 Nicotine dependence unspecified, with withdrawal; N17.9 Acute kidney failure, unspecified; F05 Delirium due to known physiological condition; F10.10 Alcohol abuse, uncomplicated; Z78.1 Physical restraint status; F31.9 Bipolar disorder, unspecified; F20.9 Schizophrenia, unspecified; F10.20 Alcohol dependence, uncomplicated; E87.6 Hypokalemia

== ENCOUNTER → 2021-02-17 10:52 | Outpatient (CLI) | payer OTHER ==
[2017-09-27 13:41] VITALS: BMI 27.8
[~2021-02-17 10:52] MED LIST changes: +KLONOPIN0.5 MG PO; +LITHIUM CARBON150 MG PO; +ZYPREXA5 MG PO
== END | disposition home or self-care (01) ==
LOC: D.HCCARDIO 10:52
PROVIDERS: ATTEND Internal Medicine Cardiovascular Disease
DX: I20.9 Angina pectoris, unspecified (principal); R06.00 Dyspnea, unspecified

== ENCOUNTER → 2021-03-17 10:17 | Outpatient (CLI) | payer OTHER ==
[2017-09-27 13:41] VITALS: BMI 27.8
--- NOTE | ~2021-03-17 | ST ---
PATIENT:MICHELA HERRERA MEDICAL RECORD: [id number] SEX: F LOCATION:[facility] ORDER #: ADMISSION DATE: 03/17/21 AGE OF PATIENT: 55 REFERRING PHYSICIAN: INTERPRETING PHYSICIAN: JOANNA LIU MD DATE OF SERVICE: 03/17/2021 GATED: Gated is normal. Normal wall motion. Normal EF at 64%. SPECT IMAGING: SPECT imaging was performed. SHORT AXIS VIEW: Short axis view shows a reversible defect along the inferior base. This confirmed the horizontal axis with reversible defect along the inferior base. VERTICAL AXIS: Vertical axis shows good uptake along the lateral wall and septum. FINAL IMPRESSION: 1. Normal gated, normal wall motion, normal ejection fraction 64%. 2. SPECT imaging with a reversible defect along the inferior base. Defect severity is moderate. Defect size is medium. FINAL RECOMMENDATIONS: This scans were suspicious for ischemic coronary artery disease. Left ventricular function remains normal. Consider angiography if clinically indicated. TRANSINT:[id number] Voice Confirmation ID: [id number] DOCUMENT ID: [id number] JOANNA LIU MD CC: [id number] DICTATION DATE: 03/17/21 1631 SAP BOBJ DEVELOPER: 03/18/21 0501 DEP CLI 03/17/21 [place] [id number] [place] [id number]
== END | disposition home or self-care (01) ==
LOC: D.HCCARDIO 10:17
PROVIDERS: ATTEND Internal Medicine Interventional Cardiology
DX: I20.9 Angina pectoris, unspecified (principal)

== ENCOUNTER 2021-03-24 11:26 | Day surgery (SDC) | payer OTHER ==
[~2021-03-24] VITALS: Ht 180.3 cm; Wt 83.2 kg
--- NOTE | ~2021-03-24 | HEMODYNAMI ---
PATIENT:MICHELA HERRERA MEDICAL RECORD: [id number] : 61 LOCATION:[facility] ADMISSION DATE: 03/24/21 Generatedon:113:50 Patient name: MICHELA HERRERA Patient #: [id number] SSN: [id number] : 1965 Date of study: 03/24/2021 Page: Of Hemodynamic Procedure Report Patient Data Patient Demographics Procedure consent was obtained First Name: MICHELA Gender: Female Last Name: JAVIER : 1965 Patient #: [id number] Age: 55 year(s) Race: Unknown SSN: [id number] Additional ID: [id number] Contact details [address]: [address] [place] [address] State: [place] City: [place] Zip code: [address] Admission Admission Data Admission Date: 03/24/2021 Admission Time: 11:26 Arrival Date: 03/24/2021 Arrival Time: 0:00 Admit Source: Other Insurance Payor: Private health insurance [facility] #: [id number] Procedure Procedure Types Cath Procedure Diagnostic Procedure [facility] w/Coronaries Sedation Charges Moderate Sedation 10-24 minutes Procedure Description Procedure Date Procedure Date: 03/24/2021 Procedure Start Time: 13:35 Procedure End Time: 13:46 Procedure Staff Name Function Xu Hilliard MD Performing Physician Isiah Villalpando RN Nurse Makenzie Mackey RT Scrub Jenelle Valdovinos RT Scrub Procedure Data Cath Procedure Fluoroscopy Diagnostic fluoroscopy Total fluoroscopy Time: 1.8 time: 1.8 min min Diagnostic fluoroscopy Total fluoroscopy dose: 539 dose: 539 mGy mGy Contrast Material Contrast Material Type Amount (ml) Isovue 300 69 Entry Location Entry Primary Successful Side Size Upsize Upsize Entry Closure Succes sful Closure Location (Fr) 1 (Fr) 2 (Fr) Remarks Device Remarks Femoral Right 5 Fr Exoseal artery Estimated blood loss: 5 ml Diagnostic catheters Device Type Used For End Catheter Placement MULTIPACK JL 4.0 5Fr Left Coronary catheter Angiography MULTIPACK 3DRC 5Fr Right Coronary catheter Angiography MULTIPACK Pigtail 5 Fr LV Angiography catheter Procedure Complications No complications Procedure Medications Medication Administration Route Dosage 0.9% NaCl I.V. 100 ml/hr Heparin Flush Bag added to field 2 bags (1000units/500ml NS) Oxygen etCO2 Nasal cannula 2 l/min Lidocaine 2% added to field 20 Fentanyl I.V. 50 mcg Fentanyl I.V. 25 mcg Versed I.V. 1 mg Versed I.V. 0.5 mg Hemodynamics Rest Heart Rate: 48 (bpm) Pressure Samples Time Site Value (mmHg) Purpose Heart Use Rate(bpm) 13:42 LV 98/6,22 Snapshot 55 Gradients Valve Time Site Site Mean SEP/DFP Peak To Heart Use 1 2 (mmHg) (sec/min) Peak Rate (mmHg) (bpm) Aortic 13:42 LV AO 57 Snapshots Pre Cath Intra NCS Post Cath Vital Signs Time Heart Resp SPO2 etCO2 NIBP (mmHg) Rhythm Pain Sedation Rate (ipm) (%) (mmHg) Status Level (bpm) 13:24:36 48 21 100 138/77(103) SB 0 (11) 10(A) , No pain 13:28:38 50 18 100 117/72(88) SB 0 (11) 9(A) , No pain 13:32:47 50 16 100 107/66(85) SB 0 (11) 9(A) , No pain 13:36:51 51 16 100 108/69(91) SB 0 (11) 9(A) , No pain 13:40:55 55 15 99 112/70(94) SB 0 (11) 9(A) , No pain 13:45:00 53 17 100 18.1 125/68(98) SB 0 (11) 10(A) , No pain Medications Time Medication Route Dose Verified Delivered Reason Notes Eff ectiveness by by 13:24:02 0.9% NaCl I.V. 100 Xu Isiah used for ml/hr Babak Villalpando RN procedure 13:24:16 Heparin Flush added 2 Xu Xu used for Bag to bags Babak Hilliard MD procedure (1000units/500ml field NS) 13:24:28 Oxygen etCO2 2 Xu Isiah used for Nasal l/min Babak Villalpando malt roaster cannula 13:24:37 Lidocaine 2% added 20ml Xu Xu for local to vial Babak Hilliard MD anesthetic field 13:25:38 Fentanyl I.V. 50 Xu Isiah for mcg Babak Villalpando RN sedation 13:25:54 Versed I.V. 1 mg Xu Isiah for Babak Villalpando RN sedation 13:33:41 Fentanyl I.V. 25 Xu Isiah for mcg Babak Villalpando RN sedation 13:33:57 Versed I.V. 0.5 Xu Isiah for mg Babak Villalpando RN sedation Procedure Log Time Note 12:26:53 Arrival Date: 03/24/2021 12:00:00 AM 12:27:05 Admit Source: Other 12:27:12 Insurance Payor : Private health insurance 13:03:26 Procedure Status Elective Heart Cath (OP). 13:03:44 Makenzie Mackey RT(R) sent for patient. Start room use. 13:03:45 Time tracking: Regular hours (M-F 7:00 - 5:00) 13:03:49 Plan of Care:Hemodynamics will remain stable., Cardiac rhythm will remain stable., Comfort level will be maintained., Respiratory function will remain adequate., Patient/ family verbilizes understanding of procedure., Procedure tolerated without complication., Recovers from procedure without complications.. 13:15:23 Patient received from Pre/Post Procedure Room to CCL 2 Alert and oriented. Tansferred to table in Supine position. 13:15:24 Warm blankets applied, and bro hugger turned on for patient comfort. 13:15:26 Signed procedure consent form obtained from patient. 13:15:27 Correct patient and procedure confirmed by team. 13:15:28 ECG and BP/O2 sat monitors applied to patient. 13:15:28 Vital chart was started 13:24:02 0.9% NaCl 100 ml/hr I.V. was administered by Isiah Villalpando RN; used for procedure; Verbal order read back and verified. 13:24:03 Baseline sample Acquired. 13:24:13 Rhythm: sinus bradycardia 13:24:14 Full Disclosure recording started 13:24:16 Heparin Flush Bag (1000units/500ml NS) 2 bags added to field was administered by Xu Hilliard MD; used for procedure; Verbal order read back and verified. 13:24:18 H&P Date Dictated: 03/24/2021 Within 30 days and on chart., H&P Addendum completed by physician on day of procedure. (MUST COMPLETE FOR ALL OUTPATIENTS). 13:24:21 Pre-op teaching completed and patient verbalized understanding. 13:24:26 Family in patients room. 13:24:27 Patient NPO since Midnight. 13:24:28 Oxygen 2 l/min etCO2 Nasal cannula was administered by Isiah Villalpando RN; used for procedure; Verbal order read back and verified. 13:24:28 Is the patient allergic to Iodine/contrast media? No. 13:24:29 Was the patient premedicated? Yes 13:24:30 Is patient on blood thinner?No 13:24:32 Patient diabetic? No. 13:24:34 Previous problem with sedation/anesthesia? No ? 13:24:37 Lidocaine 2% 20ml vial added to field was administered by Xu Hilliard MD; for local anesthetic; Verbal order read back and verified. 13:24:37 Snore? No 13:24:38 Sleep apnea? No 13:24:39 Deviated septum? No 13:24:39 Opens mouth fully? Yes 13:24:40 Sticks out tongue? Yes 13:24:43 Airway obstruction? No ? 13:24:45 Dentures? No ? 13:24:49 Pre procedure: right dorsailis pedis pulse 2+ Normal; easily identifiable; not easily obliterated 13:24:51 Pre procedure: left dorsailis pedis pulse 2+ Normal; easily identifiable; not easily obliterated 13:24:53 Patient pain scale 0/10 ?. 13:24:59 IV patent on arrival in left forearm with 0.9% NaCl at [facility]. 13:25:01 Lab results completed and on chart. 13:25:06 Right groin area was prepped with chlora-prep and draped in sterile fashion 13:25:07 Alarms reviewed by R. N. 13:25:08 Sharps counted by scrub and verified by R.N. 13:25:09 Physician arrived 13:25:09 --------ALL STOP TIME OUT------ 13:25:10 Final Timeout: patient, procedure, and site verified with staff and physician. All members of the team are in agreement. 13:25:11 Right groin site verified by team. 13:25:14 Fire Safety Assessment: A--An alcohol-based skin anteseptic being used preoperatively., C--Open oxygen or nitrous oxide is being used., D--An ESU, laser, or fiber-optic light is being used. 13:25:17 Physical assessment completed. ASA score P 2 - A patient with mild systemic disease as per Xu Hilliard MD. 13:25:22 Sedation plan: IV Moderate Sedation Medication:Versed, Fentanyl 13:25:38 Fentanyl 50 mcg I.V. was administered by Isiah Villalpando RN; for sedation; Verbal order read back and verified. 13:25:54 Versed 1 mg I.V. was administered by Isiah Villalpando RN; for sedation; Verbal order read back and verified. 13:27:34 Use device set Femoral Dx 13:27:35 ACIST Syringe (07612) opened to sterile field. 13:27:35 Bag Decanter (2002S) opened to sterile field. 13:27:35 Medline Cath Pack ([id number]) opened to sterile field. 13:27:37 ACIST Hand Control (75356) opened to sterile field. 13:27:37 ACIST Manifold (20656) opened to sterile field. 13:27:37 DIAGNOSTIC Multipack 5Fr catheter set (UY3122) opened to sterile field. 13:27:38 Tegaderm 4 x 4 (1626W) opened to sterile field. 13:27:39 SHEATH 5FR [place] (GTQ718) opened to sterile field. 13:27:39 EMERALD Guide Wire (626-440) opened to sterile field. 13:33:41 Fentanyl 25 mcg I.V. was administered by Isiah Villalpando RN; for sedation; Verbal order read back and verified. 13:33:57 Versed 0.5 mg I.V. was administered by Isiah Villalpando RN; for sedation; Verbal order read back and verified. 13:34:56 Procedure started. 13:35:26 Local anesthetic to right femoral artery with Lidocaine 2% by Xu Hilliard MD.INITIAL ACCESS ONLY 13:35:49 A 5 Fr sheath was inserted into the Right Femoral artery 13:36:16 A MULTIPACK JL 4.0 5Fr catheter was advanced over the wire and used for Left Coronary Angiography. 13:36:50 LCA angiography performed. 13:36:54 Injector settings: Ml/sec: 3, Volume: 6, 13:38:14 Catheter removed. 13:38:39 A MULTIPACK 3DRC 5Fr catheter was advanced over the wire and used for Right Coronary Angiography. 13:40:05 RCA angiography performed. 13:40:12 Injector settings: Ml/sec: 3., Volume: 6, 13:40:22 Catheter removed. 13:40:29 A MULTIPACK Pigtail 5 Fr catheter was advanced over the wire and used for LV Angiography. 13:42:18 LV hemodynamics recorded. 13:42:19 LV gram done using STOVALL 13:42:22 Injector settings: Ml/sec: 5, Volume: 15, 13:42:32 EF : 55 % 13:43:08 Catheter removed. 13:43:33 EXOSEAL 5Fr (EX500) opened to sterile field. 13:44:30 Sheath removed intact; hemostasis achieved with Exoseal to the Right Femoral artery. 13:44:32 Procedure ended.(Physican Out) 13:44:56 Fluoroscopy time 01.80 minutes. 13:44:59 Fluoroscopy dose: 539 mGy 13:44:59 Flurop Dose total: 539 13:45:04 Dose Area Product 94802 mGy/cm. 13:45:08 Contrast amount:Isovue 300 69ml. 13:45:10 Maximum allowable dose exceeded? No. 13:45:12 Sharps counted by scrub and verified by R.N. 13:45:13 Insertion/operative site no bleeding no hematoma. 13:45:15 Post-op/insertion site Right Femoral artery dressed using a 4 x 4 and Tegaderm. 13:45:17 Post right femoral artery:stable 13:45:19 Post Procedure Pulses reassessed and unchanged 13:45:21 Post procedure rhythm: unchanged. 13:45:23 Estimated blood loss: 5 ml 13:45:25 Post procedure instruction explained to patient.Patient verbalizes understanding. 13:45:25 Patient needs reinforcement of post procedure teaching. 13:45:52 Procedure type changed to Cath procedure, Diagnostic procedure, LHC, LHC w/Coronaries, Sedation Charges, Moderate Sedation 10-24 minutes 13:45:53 Procedure and supply charges have been captured, reviewed, submitted and are correct. 13:45:57 Procedure Complication : No complications 13:46:01 Vital chart was stopped 13:46:23 [facility] Findings: mild to moderate CAD (<70%) 13:46:26 Operative report dictated upon procedure completion. 13:46:26 See physician's report for complete and final results. 13:46:29 Report given to Pre/Post Procedure Room. 13:46:31 Patient transfered to Pre/Post Procedure Room with Stretcher. 13:46:33 Procedure ended. 13:46:33 Full Disclosure recording stopped 13:46:39 End room use (Document Last) 13:49:33 End room use (Document Last) 13:50:17 End room use (Document Last) Device Usage Item Name Manufacture Quantity Catalog Hospital Part Current Minimal L ot# / Number Charge Number Stock Stock Serial# Code ACIST Acist 1 74954 649232 981438 770278 20 Syringe Medical (65467) Systems Inc Bag Microtek 1 651249 66352 879171 5 Decanter Medical Inc. () Medline Medline 1 [id number] 725568 83250 942787 5 Cath Pack ([id number]) ACIST Hand Acist 1 80035 157773 364552 067953 5 Control Medical (28682) Systems Inc ACIST Acist 1 43048 892619 055681 477295 5 Manifold Medical (53937) Systems Inc DIAGNOSTIC Cardinal 1 QM9139 418054 79569 147467 30 Multipack Health 5Fr catheter set (EM2731) Tegaderm 4 3M 1 1626W 048139 572719 334800 5 x 4 (1626W) SHEATH 5FR Terumo 1 YBW220 124201 306615 766059 5 [place] (QNH721) EMERALD Cardinal 1 502-455 822984 557437 901591 5 Guide Wire Health (502455) MULTIPACK Cardinal 1 481684 5 JL 4.0 5Fr Health catheter MULTIPACK Cardinal 1 186863 5 3DRC 5Fr Health catheter MULTIPACK Cardinal 1 093041 5 Pigtail 5 Health Fr catheter EXOSEAL 5Fr Cardinal 1 EX500 668839 479479 801654 10 (EX500) Health Signature Audit [place] Stage Time Signature Unsigned Intra-Procedure 03/24/2021 Jenelle Valdovinos 1:49:33 PM RT(R) Intra-Procedure 03/24/2021 Isiah Villalpando RN 1:50:18 PM Intra-Procedure 03/24/2021 Xu Hilliard MD 1:50:55 PM Signatures Performing Physician : Signature : Xu Hilliard MD Date : Time : Nurse : Isiah Villalpando RN Signature : Date : Time : [address] [place] [address]
[2021-03-24 12:11] VITALS: BP 128/56; Ht 180.3 cm; Wt 83.2 kg
[2021-03-24] MEDS ORDERED: MOBIC7.5 MG PO (12:55)
[2021-03-24] MEDS ORDERED: LEVOTHYROXINE112 MCG PO (12:55)
[2021-03-24] MEDS ORDERED: JINTELI 1 MG-51 EACH PO (12:55)
[2021-03-24] MEDS ORDERED: LIPITOR10 MG PO (12:56)
[2021-03-24] MEDS ORDERED: BISOPROLOL FUMAR5 MG PO (12:56)
[2021-03-24] MEDS ORDERED: TRAZODONE HCL50 MG PO (12:56)
[2021-03-24 13:44] LABS: BASOPHILS 0 % (0-2); EOSINOPHILS 3.9 % (0-7); HEMATOCRIT 35.4 % (36.0-48.0); HEMOGLOBIN 12.1 g/dL (12-16); IMMATURE GRANULOCYTES 0.2 % (0-5); LYMPHOCYTE ABS# 1.28 10x3/uL (1.18-3.74); LYMPHOCYTES 22.5 % (15-50); MCH 31.3 pg (26.0-34.0); MCHC 34.2 g/dL (31.0-37.0); MCV 91.5 fL (80.0-100.0); MEAN PLATELET VOLUME 10.3 fL (7.4-10.4); MONOCYTES 4.6 % (2-11); NEUTROPHIL ABS# 3.91 10x3/uL (1.56-6.13); NEUTROPHILS 68.8 % (40-80); PLATELET COUNT 211 10x3/uL (130-400); RBC 3.87 10x6/uL (4.00-5.40); WBC 5.7 10x3/uL (4.8-10.8)
--- NOTE | 2021-03-24 13:56 | NUR ---
PT ARRIVED BY STRETCHER. PLACED ON MONITORS. ASSESSMENT COMPLETED. VSS AT THIS TIME. CALL LIGHT WITHIN REACH.
[2021-03-24 13:57] LABS: ANION GAP 11.3 mmol/L (8-16); CARBON DIOXIDE 24.7 mmol/L (21.0-32.0); CHOL - HDL RATIO 3.6 ratio (2.3-4.1); CREATININE - SERUM 0.9 mg/dL (0.6-1.3); LDL-HDL RATIO 2.1 ratio (1.5-3.5)
--- NOTE | 2021-03-24 14:10 | NUR ---
PT RESTING COMFORTABLY. VSS AT THIS TIME. RIGHT GROIN DRESSING C/D/I. NO S/S OF HEMATOMA NOTED. RIGHT PEDAL PULSE PALPABLE. DENIES NAUSEA. TOLERATING SIPS OF WATER.
--- NOTE | 2021-03-24 14:40 | NUR ---
PT RESTING COMFORTABLY. VSS. RIGHT GROIN DRESSING C/D/I. NO S/S OF HEMATOMA NOTED. RIGHT PEDAL PULSE PALPABLE.
--- NOTE | 2021-03-24 15:00 | NUR ---
RIGHT GROIN DRESSING C/D/I. NO S/S OF HEMATOMA NOTED. RIGHT PEDAL PULSE PALPABLE. HEAD OF BED INC TO 30 DEGREES. TOLERATED WELL. SET UP WITH DRINK AND CRACKERS. DENIES NAUSEA/PAIN. CALL LIGHT WITHIN REACH. NO NEEDS AT THIS TIME.
--- NOTE | 2021-03-24 15:30 | NUR ---
PT ON BEDPAN. VOIDED 450cc OF CLEAR YELLOW URINE. SHADIA-CARE GIVEN. RIGHT GROIN DRESSING C/D/I. NO S/S OF HEMATOMA NOTED. PIV D/C'D WITH CATH TIP INTACT. TOLERATED WELL. VSS. PT INSTRUCTED TO GET UP AND DRESSED AT THIS TIME. NO ASSISTANCE NEEDED. CALL LIGHT LEFT WITHIN REACH.
--- NOTE | 2021-03-24 15:45 | NUR ---
PT DRESSED. DISCUSSED DISCHARGE INSTRUCTIONS WITH PT. SHE VOICED UNDERSTANDING. RIGHT GROIN DRESSING C/D/I. NO S/S OF HEMATOMA NOTED. PT AMBULATED TO RESTROOM. VOIDED WITHOUT DIFFICULTY. STEADY GAIT NOTED.
--- NOTE | 2021-03-24 15:50 | NUR ---
PT REFUSED WHEELCHAIR. I WALKED WITH PT OUT TO HER BROTHER'S VEHICLE. STEADY GAIT NOTED. NO S/S OF DISTRESS NOTED. ALL BELONGINGS AND DISCHARGE INSTRUCTIONS IN HAND.
== END 2021-03-24 15:50 | disposition home or self-care (01) ==
LOC: D.CATH 11:26
PROVIDERS: ATTEND Internal Medicine Cardiovascular Disease
DX: I20.9 Angina pectoris, unspecified (principal); R94.39 Abnormal result of other cardiovascular function study; R07.9 Chest pain, unspecified; I10 Essential (primary) hypertension; E78.5 Hyperlipidemia, unspecified; Z72.0 Tobacco use